=== PATIENT | female | born 1985 | race Caucasian/White ===

== ENCOUNTER 2016-04-26 16:59 | Inpatient (IN) | payer OTHER ==
[~2016-04-26] VITALS: Ht 175.3 cm; Wt 81.0 kg
[~2016-04-26 16:59] MED LIST: PRENTAB26 PO
[2016-04-26 17:31] VITALS: Ht 175.3 cm; Wt 81.0 kg
[2016-04-26] MEDS ORDERED: METHYLERGONOVINE MALEATE 0.2 MG/ML AMP ONE (18:40)
[2016-04-26] MEDS ORDERED: OXYTOCIN INJ 10 UNITS/ML VIAL ONE (18:52)
[2016-04-26] MEDS ORDERED: OXYTOCIN INJ 10 UNITS/ML VIAL IM ONE (19:00)
[2016-04-26] MEDS ORDERED: DIPHTHERIA/TETANUS/PERTUSSIS 0.5 ML SYR/VIAL IM. ONE (19:00)
[2016-04-26] MEDS ORDERED: HYDROCORTISONE ACETATE 25 MG SUPP PR PRN (19:00)
[2016-04-26] MEDS ORDERED: ACETAMINOPHEN 325 MG TAB PO PRN (19:00)
[2016-04-26] MEDS ORDERED: BENZOCAINE 20% AER SPR 82.5 GM CAN EXT PRN (19:00)
[2016-04-26] MEDS ORDERED: SUPERCREAM 0.870 % 15GM JAR EXT PRN (19:00)
[2016-04-26] MEDS ORDERED: OXYCODONE/ACETAMINOPHEN 5-325 TAB PO PRN (19:00)
[2016-04-26] MEDS ORDERED: METHYLERGONOVINE MALEATE 0.2 MG/ML AMP IM ONE (19:00)
[2016-04-26] MEDS ORDERED: LANOLIN OINT EXT PRN ×2 (19:00)
[2016-04-26] MEDS ORDERED: ACETAMINOPHEN/CODEINE 300/30MG TAB PO PRN (19:00)
[2016-04-26] MEDS ORDERED: IBUPROFEN 600 MG TAB ONE (19:17)
[2016-04-26 19:20] LABS: HEMATOCRIT 33.4 % (37-47); MEAN CELL VOLUME 84.3 fL (80-100); MEAN CORPUSCULAR HEMOGLOBIN 28.5 pg (25-34); MEAN CORPUSCULAR HGB CONC 33.8 g/dl (32-36); PLATELET COUNT 247 K/uL (130-400); RED BLOOD COUNT 3.96 M/uL (4.2-5.4); WHITE BLOOD COUNT 15.28 K/uL (4.8-10.8)
[2016-04-26 21:15] VITALS: BP 119/70; PULSE 73; TEMP 36.5
--- NOTE | 2016-04-26 22:19 | DELIVERY SUMMARY ---
DATE OF OPERATION: 04/26/2016 HISTORY OF PRESENT ILLNESS: The patient is a 30-year-old 2, para 2. She has had an uneventful course. Her due date is 04/26/2016. Blood type is A positive. She is rubella immune. She was admitted in spontaneous labor with ruptured membranes. On admission, she was about 9 cm dilated. She went to full dilatation and pushed out the in knee-chest position. She had a girl, Apgars were 8 and 9. Cord was clamped after the cord pulse stopped. Cord was cut by the father. She had no IV access, so we gave her IM Pitocin. Uterus contracted well and placenta was removed intact. She had a fair amount of bleeding. She was positioned in usual position on the bed. She had a right periurethral laceration which was bleeding. This was infiltrated with local and then sewn with a continuous 3-0 chromic gut suture. Then, she had a first-degree perineal laceration and this area was infiltrated with local. The vaginal mucosa was approximated out to beyond the hymenal ring with a continuous Vicryl and then a deep suture of Vicryl was used to approximate the bulbocavernosus muscle. A separate deep suture was used to approximate the perineal body. At this point, hemostasis was good. A red rubber catheter was used to empty the bladder and also to ensure patency of the urethra. Then bimanual exam, removed all clots from the vagina and cervix, and hemostasis was good. She received IM Pitocin and Methergine. I attest to the content of the Intraoperative Record and any orders documented therein. Any exceptio ns are noted below.
[2016-04-26] MEDS: IBUPROFEN 600 MG TAB PO PRN (23:15)
[2016-04-26 23:33] VITALS: BP 100/63; PULSE 67; TEMP 36.7
[2016-04-27] MEDS: IBUPROFEN 600 MG TAB PO PRN ×5 (04:15→23:46)
[2016-04-27 04:28] VITALS: BP 114/72; PULSE 89; TEMP 36.5
[2016-04-27 06:05] LABS: HEMATOCRIT 30.7 % (37-47)
[2016-04-27] MEDS: ACETAMINOPHEN/CODEINE 300/30MG TAB PO PRN ×4 (06:15→22:47)
[2016-04-27 07:25] VITALS: BP 100/60; PULSE 94; TEMP 36.5; O2SAT 98
[2016-04-27] MEDS: DOCUSATE SODIUM 100 MG CAP PO SCH ×3 (07:25→19:43)
[2016-04-27] MEDS: FERROUS SULFATE 325 MG TAB PO SCH (08:41)
[2016-04-27] MEDS: PRENATAL VITAMIN TAB PO SCH (08:41)
--- NOTE | 2016-04-27 11:47 | Progress Note ---
Subjective Apr 27, 2016. Subjective conversation w/ patient Ambulation: ambulating normally Voiding: no voiding problems Passing Gas: Yes Diet Tolerance: Regular Diet Lochia: Small Feeding Type: Breast Feeding Review of Systems Constitutional: + fever Objective Vital Signs Date Time Temp Pulse Resp B/P Pulse Ox O2 Delivery O2 Flow Rate FiO2 04/27/16 08:35 Room Air 04/27/16 07:25 36.5 94 18 100/60 98 Room Air 04/27/16 04:28 36.5 89 18 114/72 Room Air 04/26/16 23:34 Room Air 04/26/16 23:33 36.7 67 18 100/63 Room Air 04/26/16 21:15 36.5 73 18 119/70 Room Air 04/26/16 21:15 Room Air Physical Exam General Appearance: WELL-APPEARING Abdomen: non tender Fundus: Firm, Non-Tender Extremities: no pedal edema, no calf tenderness Laboratory Results Last 24 Hours Test 04/26/16 19:01 04/27/16 05:45 White Blood Count 15.28 K/uL Red Blood Count 3.96 M/uL Hemoglobin 11.3 g/dL 10.5 g/dL Hematocrit 33.4 % 30.7 % Mean Corpuscular Volume 84.3 fL Mean Corpuscular Hemoglobin 28.5 pg Mean Corpuscular Hemoglobin Concent 33.8 g/dl RDW Standard Deviation 40.6 fL RDW Coefficient of Variation 13.2 % Platelet Count 247 K/uL Mean Platelet Volume 10.0 fL Assessment and Plan Post- Day#: 1
[2016-04-27 11:50] VITALS: BP 100/58; PULSE 68; TEMP 36.6; O2SAT 97
[2016-04-27 16:25] VITALS: BP 106/66; PULSE 66; TEMP 36.4; O2SAT 96
[2016-04-27] MEDS ORDERED: BISACODYL 5 MG TABEC PO SCH (20:00)
[2016-04-27 23:30] VITALS: BP 104/64; PULSE 67; TEMP 36.6; O2SAT 97
[2016-04-28] MEDS ORDERED: BISACODYL 10 MG SUPP PR PRN (07:00)
[2016-04-28 07:35] VITALS: BP 99/65; PULSE 90; TEMP 36.6; O2SAT 97
--- NOTE | 2016-04-28 08:12 | Progress Note ---
Subjective Apr 28, 2016. Subjective conversation w/ patient Ambulation: ambulating normally Voiding: no voiding problems Passing Gas: Yes Diet Tolerance: Regular Diet Lochia: Small Feeding Type: Breast Feeding Review of Systems Constitutional: + fever Objective Vital Signs Date Time Temp Pulse Resp B/P Pulse Ox O2 Delivery O2 Flow Rate FiO2 04/28/16 07:35 36.6 90 18 99/65 97 Room Air 04/27/16 23:30 36.6 67 18 104/64 97 Room Air 04/27/16 23:30 97 Room Air 04/27/16 16:25 36.4 66 18 106/66 96 Room Air 04/27/16 16:25 96 Room Air 04/27/16 11:50 36.6 68 18 100/58 97 Room Air 04/27/16 08:35 Room Air Physical Exam General Appearance: WELL-APPEARING Abdomen: non tender Fundus: Firm, Non-Tender Extremities: no pedal edema, no calf tenderness Assessment and Plan Post- Day#: 2
--- NOTE | 2016-04-28 08:14 | Discharge Instructions ---
Discharge Instructions Date of Service Apr 28, 2016. Admission Reason for Admission: Check Labor Discharge Discharge Diagnosis / Problem: term pergnancy Discharge Goals Goal(s): Routine recovery after delivery Activity Recommendations Activity Limitations: as noted below ACTIVITY RECOMMENDATIONS: * Gradual return to full activity over the next 2-3 weeks. * No lifting - nothing heavier than baby over the next 2-3 weeks. * Do not engage in vigorous exercise, sexual activity or sports until cleared by your physician. * Do not drive or operate any motorized equipment until cleared by your physician. * You may shower/bathe daily. DIET: Resume Previous Diet If Breast-feeding: * Increase caloric intake by 500 calories, eat 3 well balanced meals, 2 high protein snacks a day and drink 6-8 8oz. glasses of fluid per day. BREAST CARE: If you are not breast feeding: * Wear a supportive bra 24 hours a day for one to two weeks. * Avoid stimulating your breasts and nipples as much as possible during the first few weeks after delivery. * When taking a shower, have the warm water hit your back, not breasts. * When your breasts feel full, apply ice packs. Usually three to four times a day helps ease the discomfort. * Take a mild pain medication (Tylenol / Motrin) when you are uncomfortable. If breast feeding: * Use breast milk to lubricate nipples. Lansinoh cream may be used for sore nipples. You do not need to remove cream prior to breast feeding. If using a different brand of cream, check the label for directions regarding removal of cream prior to nursing. * Wear a supportive bra. * If having problems with breasts or breast feeding, call a systems development consultant or your health care provider. OVER THE COUNTER MEDICATION: * For discomfort or pain, you may use Acetaminophen (Tylenol), Ibuprofen (Advil ), or Naproxen (Aleve) following the package directions. * For constipation you may use Colace following the package directions. SPECIAL CARE INSTRUCTIONS: * Vaginal rest (no tampons, douching, intercourse) until after doctor 's visit. * control as discussed with doctor. * Verbalizes understanding of car seat law as reviewed with patient nursing. * Car Seat hand-out given and reviewed with patient by nursing. * Shaken baby information reviewed with patient by nursing. Call you doctor if: * Temperature greater than or equal to 100.4 degrees F or 38.0 degrees C. Take your temperature twice daily for a week. * Bleeding becomes heavier than the heaviest part of your period - saturating a sanitary pad within an hour. * Passing large clots. * Bleeding has a foul smelling odor. * Signs and symptoms of phlebitis: leg pain, warm, red or swollen area on leg. * "Baby Blues" lasting longer than two weeks. ++ If you have had a and incision has increased pain, redness, swelling, presence of any drainage, or if the incision starts to open up. If you have any questions or concerns, call your health care practitioner at [phone]. FOLLOW-UP VISIT: Please call the office at to schedule a 6 week examination. . Current Hospital Diet Patient's current hospital diet: Regular OB Diet Discharge Diet Recommended Diet: Regular Diet Pending Studies Studies pending at discharge: no Medical Emergencies . Who to Call and When: Medical Emergencies: If at any time you feel your situation is an emergency, please call 911 immediately. . Non-Emergent Contact Non-Emergency issues call your: Time Clock Repairer Call Non-Emergent contact if: temperature is above 100.5 . . "Provider Documentation" section prepared by Sal Pretty. VTE Core Measure Inpt VTE Proph given/why not?: Treatment not indicated
[2016-04-28] MEDS: IBUPROFEN 600 MG TAB PO PRN (08:20)
[2016-04-28] MEDS: FERROUS SULFATE 325 MG TAB PO SCH (08:20)
[2016-04-28] MEDS: DOCUSATE SODIUM 100 MG CAP PO SCH (08:20)
[2016-04-28] MEDS: PRENATAL VITAMIN TAB PO SCH (08:20)
[2016-04-28 13:25] VITALS: BP_DIAS 65; PULSE 90; TEMP 36.6
== END 2016-04-28 13:25 | disposition home or self-care (01) | DRG 775 ==
LOC: C.OPB 16:59 → C.LD 16:59 → C.OPB 18:39 → C.LD 18:39 → C.OBG 21:15
PROVIDERS: ADMIT Obstetrics & Gynecology; ATTEND Obstetrics & Gynecology
PROC: 10E0XZZ Delivery of Products of Conception, External Approach (ICD-10-PCS; principal; 2016-04-26)
PROC: 0HQ9XZZ Repair Perineum Skin, External Approach (ICD-10-PCS; principal; 2016-04-26)
PROC: 0UQMXZZ Repair Vulva, External Approach (ICD-10-PCS; principal; 2016-04-26)
DX: O42.02 Full-term premature rupture of membranes, onset of labor within 24 hours of rupture (principal); Z37.0 Single live birth; O70.0 First degree perineal laceration during delivery; O71.82 Other specified trauma to perineum and vulva; Z3A.40 40 weeks gestation of pregnancy

== ENCOUNTER 2018-05-09 01:42 | Inpatient (IN) ==
[2018-05-09] MEDS ORDERED: METHYLERGONOVINE MALEATE 0.2 MG/ML AMP ONE (02:02)
[2018-05-09] MEDS ORDERED: IBUPROFEN 600 MG TAB PO ONE (02:26)
[2018-05-09] MEDS ORDERED: SUPERCREAM 0.870% 15 GM JAR EXT PRN (02:28)
[2018-05-09] MEDS ORDERED: OXYCODONE/ACETAMINOPHEN 5mg/325mg TAB PO PRN (02:28)
[2018-05-09] MEDS ORDERED: DIPHTHERIA/TETANUS/PERTUSSIS 0.5 ML SYR/VIAL IM ONE (02:28)
[2018-05-09] MEDS ORDERED: ACETAMINOPHEN 325 MG TAB PO PRN (02:28)
[2018-05-09] MEDS ORDERED: BISACODYL 10 MG SUPP PR PRN (02:28)
[2018-05-09] MEDS ORDERED: METHYLERGONOVINE MALEATE 0.2 MG/ML AMP IM ONE (02:28)
[2018-05-09] MEDS ORDERED: OXYTOCIN 10 UNITS/ML VIAL IM ONE (02:28)
[2018-05-09] MEDS ORDERED: BENZOCAINE 20% AER SPR 82.5 GM CAN EXT PRN (02:28)
[2018-05-09] MEDS ORDERED: HYDROCORTISONE ACETATE 25 MG SUPP PR PRN (02:28)
[2018-05-09 02:47] LABS: Hematocrit (blood only) 35.6 % (37-47); Hemoglobin 12.1 g/dL (12.0-16.0); Mean Corpuscular Volume 87.9 fL (80-100); Mean Platelet Volume 9.9 fL (7.4-10.4); Platelet Count 251 K/uL (130-400); RDW Coefficient of Variation 12.9 % (11.5-14.5); RDW Standard Deviation 41.6 fL (36.4-46.3); Red Blood Count 4.05 M/uL (4.2-5.4); White Blood Count 12.11 K/uL (4.8-10.8)
--- NOTE | 2018-05-09 02:48 | Operative Report ---
DATE OF OPERATION: 05/09/2018 Ms. Pardo is a 32-year-old 3, para 3. General health is good. No known drug allergies. She has been followed in our office for care and delivery. Blood type is A positive, rubella immune. Vaginal beta strep negative. She screened negative for gestational diabetes. Her due date is 05/23/2018, was admitted in active labor, delivered infant on her knees with 1 push. A female infant was delivered. Infant was suctioned through the nose and the mouth. We let the cord pulse for several minutes, then clamped the cord. The cord was cut by the father. We turned the patient around, gave her IM Methergine and IM Pitocin and delivered the placenta intact. Inspection of the perineum revealed a periclitoral laceration just to the right of the midline which was bleeding. This was infiltrated with local and sewn with a running 3-0 chromic gut suture. Perineum was a first-degree laceration. This was also infiltrated with local and repaired anatomically. The vaginal mucosa was approximated out up and to beyond the hymenal ring with a running Vicryl. Then a deep suture of heavy Vicryl was used to approximate the bulbocavernosus muscle, separate deep suture was used to approximate the perineal body and a running subcuticular suture of 2-0 Vicryl used to approximate the perineal skin edges. Following this, vag exam including rectovaginal examination revealed no hematoma formation, sponges in the vagina, or stitches into the rectal mucosa. I attest to the content of the Intraoperative Record and any orders documented therein. Any exception s are noted below.
[2018-05-09] MEDS: ACETAMINOPHEN W/CODEINE #3 1 TAB PO PRN ×4 (05:42→23:07)
[2018-05-09] MEDS: IBUPROFEN 600 MG TAB PO PRN ×4 (07:48→19:52)
[2018-05-09] MEDS: PRENATAL VITAMIN 1 TAB PO SCH (09:02)
[2018-05-09] MEDS: DOCUSATE SODIUM 100 MG CAP PO SCH ×2 (09:02→19:52)
[2018-05-10] MEDS: IBUPROFEN 600 MG TAB PO PRN ×4 (01:31→20:52)
[2018-05-10] MEDS: ACETAMINOPHEN W/CODEINE #3 1 TAB PO PRN (05:09)
[2018-05-10 07:04] LABS: Hematocrit (blood only) 32.9 % (37-47); Hemoglobin 10.7 g/dL (12.0-16.0); Mean Corpuscular Hgb Conc 32.5 g/dL (32-36); Mean Corpuscular Volume 91.1 fL (80-100); Mean Platelet Volume 9.5 fL (7.4-10.4); Platelet Count 206 K/uL (130-400); RDW Coefficient of Variation 13.4 % (11.5-14.5); RDW Standard Deviation 44.1 fL (36.4-46.3); Red Blood Count 3.61 M/uL (4.2-5.4); White Blood Count 10.66 K/uL (4.8-10.8)
--- NOTE | 2018-05-10 08:03 | Obstetrical Progress Note ---
Date of Service May 10, 2018 Physical Exam Vital Signs (Past 24 Hours): Last Vital Signs Temp 36.7 C 05/09/18 23:30 Pulse 61 05/09/18 23:30 Resp 18 05/09/18 23:30 BP 103/70 05/09/18 23:30 Pulse Ox 96 05/09/18 23:30 Physical Exam: abdomen soft and non tender vaginal bleeding scant to moderate no calf tenderness ambulating well
[2018-05-10] MEDS: PRENATAL VITAMIN 1 TAB PO SCH (08:42)
[2018-05-10] MEDS: DOCUSATE SODIUM 100 MG CAP PO SCH ×2 (08:42→20:52)
[2018-05-10] MEDS ORDERED: BISACODYL 5 MG TABEC PO SCH (20:00)
[2018-05-11] MEDS: IBUPROFEN 600 MG TAB PO PRN ×3 (01:43→14:05)
[2018-05-11 07:19] LABS: Hematocrit (blood only) 31.3 % (37-47); Hemoglobin 10.3 g/dL (12.0-16.0)
[2018-05-11] MEDS: DOCUSATE SODIUM 100 MG CAP PO SCH (08:32)
[2018-05-11] MEDS: PRENATAL VITAMIN 1 TAB PO SCH (08:32)
[2018-05-11 08:42] VITALS: BP 104/65; PULSE 69; TEMP 97.9; O2SAT 98
--- NOTE | 2018-05-11 09:37 | Obstetrical Progress Note ---
Date of Service May 11, 2018 Physical Exam Vital Signs (Past 24 Hours): Last Vital Signs Temp 36.6 C 05/11/18 08:00 Pulse 69 05/11/18 08:00 Resp 16 05/11/18 08:00 BP 104/65 05/11/18 08:00 Pulse Ox 98 05/11/18 08:00 Physical Exam: abdomen soft and non tender vaginal bleeding scant to moderate no calf tenderness ambulating well
== END 2018-05-11 15:00 | disposition home or self-care (01) | DRG 807 ==
LOC: OPB 01:42 → 4S1 01:44 → 4S2 05:49